=== PATIENT | female | born 1995 | race Hispanic/Latino ===

== ENCOUNTER 2023-01-13 15:45 | Emergency (ER) | payer OTHER ==
[2023-01-13 17:42] LABS: Hematocrit 30.9 % (36.0-45.0); Lymphocytes % 7.6 % (15.3-44.8); MCV 88.5 fL (80-100); MPV 8.4 fL (7.6-11.3)
[2023-01-13 17:55] LABS: Potassium 4.2 mmol/L (3.5-5.1)
[2023-01-13 18:16] LABS: Urine Blood Trace-intact (Negative); Urine Glucose Negative (Negative); Urine Protein Negative (Negative); Urine Specific Gravity 1.025 (1.005-1.030)
[2023-01-13 18:32] LABS: Urine Specific Gravity/Preg 1.025 (1.005-1.030)
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
[2023-01-13 21:26] VITALS: TEMP 98.8
[2023-01-13 21:28] VITALS: BP 133/82; O2SAT 99
== END 2023-01-13 21:11 | disposition home or self-care (01) ==
LOC: ER 15:45
DX: S29.011A Strain of muscle and tendon of front wall of thorax, initial encounter (principal); V49.49XA Driver injured in collision with other motor vehicles in traffic accident, initial encounter; N83.299 Other ovarian cyst, unspecified side; E11.9 Type 2 diabetes mellitus without complications; I10 Essential (primary) hypertension
CPT/HCPCS: 85025; 80048; 36415; 81025; 81003; 70450; 72125; 71260; 74177; 99284; Q9967